=== PATIENT | male | born 1990 | race Caucasian/White ===

== ENCOUNTER 2018-05-24 21:14 | Emergency (ER) | payer OTHER ==
[~2018-05-24] VITALS: Ht 177.8 cm; Wt 106.1 kg
[2018-05-24 21:31] VITALS: Ht 177.8 cm; Wt 106.1 kg
[2018-05-25 00:08] VITALS: BP 131/88
== END 2018-05-25 01:55 | disposition home or self-care (01) ==
LOC: ED 21:14
DX: S20.211A Contusion of right front wall of thorax, initial encounter (principal); W17.89XA Other fall from one level to another, initial encounter; Y93.89 Activity, other specified; Y92.89 Other specified places as the place of occurrence of the external cause; Y99.8 Other external cause status